=== PATIENT | female | born 1940 | race Caucasian/White ===

== ENCOUNTER 2018-01-02 11:29 | Inpatient (IN) | payer MEDICARE ==
[~2018-01-02] VITALS: Ht 172.7 cm; Wt 90.1 kg
[~2018-01-02 11:29] MED LIST: ASPI325; ASPI81EC PO; ATENOL/CHLOR; CEPH500 PO; ESTR2 PO; IRBE150; MAGOXI400 PO; METF500 PO; MULVIT PO; OLME20 PO; PRESERVISION PO; RXCEPH500 PO; RXSULTRIDS PO; SULTRIDS PO; TRICOR PO; VITAMEN
[2018-01-02 11:53] LABS: BASOPHILS ABSOLUTE AUTO 0.09 K/mm3 (0.00-0.23); BASOPHILS PERCENT AUTO 1 % (0-2); EOSINOPHILS ABSOLUTE AUTO 0.11 K/mm3 (0.00-0.68); EOSINOPHILS PERCENT AUTO 2 % (0-6); Hematocrit 44.9 % (33.0-51.0); Hemoglobin 13.9 g/dL (11.5-16.0); IMMATURE GRAN ABSOLUTE AUTO 0.03 K/mm3 (0.00-0.10); IMMATURE GRAN PERCENT AUTO 0 % (0-1); LYMPHOCYTES ABSOLUTE AUTO 2.21 K/mm3 (0.84-5.20); LYMPHOCYTES PERCENT AUTO 30 % (21-46); MONOCYTES ABSOLUTE AUTO 0.63 K/mm3 (0.16-1.47); MONOCYTES PERCENT AUTO 9 % (4-13); Mean Corpuscular HGB 26.4 pg (26.0-34.0); Mean Corpuscular Volume 85 fL (80-100); NEUTROPHILS ABSOLUTE AUTO 4.34 K/mm3 (1.96-9.15); NEUTROPHILS PERCENT AUTO 59 % (41-73); Platelet Count 327 K/mm3 (150-400); RDW Coefficient Variation 15.9 % (11.7-14.2); RDW Standard Deviation 49.1 fL (35.1-46.3); Red Blood Cell Count 5.27 M/mm3 (3.80-5.20); White Blood Cell Count 7.41 K/mm3 (4.00-11.30)
[2018-01-02 12:22] LABS: Alanine Aminotransfer (ALT/SGP 23 U/L (12-78); Albumin, Blood 3.5 g/dL (3.4-5.0); Albumin/Globulin Ratio 0.7 (0.8-1.8); Alk Phos 39 U/L (50-136); Anion Gap 10 mmol/L (6-16); Aspartate Aminotrans (AST/SGOT 32 U/L (12-37); Bilirubin, Total 0.6 mg/dL (0.1-1.0); Blood Urea Nitrogen 25 mg/dL (8-24); CO2, Blood 24 mmol/L (21-32); Calcium, Blood 9.4 mg/dL (8.5-10.1); Chloride, Blood 104 mmol/L (98-108); Creatinine, Blood 0.89 mg/dL (0.40-1.00); Globulin, Blood 4.7 g/dL (2.2-4.0); Glomerular Filtration Rate >60 (60-); Glucose, Blood 226 mg/dL (70-99); Potassium, Blood 4.2 mmol/L (3.5-5.5); Sodium, Blood 138 mmol/L (136-145); Total Protein, Blood 8.2 g/dL (6.4-8.2)
[2018-01-02 12:53] LABS: Source, Urine Clean Catch
[2018-01-02 13:06] LABS: Bilirubin, Urine Neg (Neg); Blood, Urine Neg (Neg); Glucose Qualitative, Urine Neg (Neg); Ketones, Urine Neg (Neg); Leukocyte Esterase, Urine 1+ (Neg); Nitrite, Urine Neg (Neg); Protein, Urine 2+ (Neg); Specific Gravity, Urine 1.025 (1.003-1.022); Urobilinogen, Urine NORM (Normal)
[2018-01-02 13:24] LABS: Appearance, Urine Clear (Clear); Color, Urine Yellow (P-Yellow)
[2018-01-02 13:25] LABS: Bacteria Not Seen /hpf; Red Blood Cells, Urine Not Seen /hpf (0-2); Squamous Epithelial Cells Not Seen /hpf (Few)
[2018-01-02 13:59] LABS: CHOL/HDL RATIO 3.1; Cholesterol 138 mg/dL (50-200); HDL Cholesterol 44 mg/dL (>39); LDL/HDL RATIO 1.6; Low Density Lipoprotein Chol 71 mg/dL (0-110); Triglycerides 116 mg/dL (30-160); Very Low Density Lipoprot Chol 23 mg/dL (6-32)
[2018-01-02] MEDS ORDERED: METO100ER PO (14:26)
[2018-01-02] MEDS ORDERED: PIOG30 (14:26)
[2018-01-02] MEDS ORDERED: GLIM4 PO (14:26)
[2018-01-02] MEDS ORDERED: FENO54 PO (18:12)
[2018-01-02] MEDS ORDERED: METF500C PO (18:12)
[2018-01-02] MEDS ORDERED: FISH OIL 1,0001 EAC1 PO (18:13)
[2018-01-08] MEDS ORDERED: LISI20 PO (17:27)
== END 2018-01-09 08:03 | DRG 65 ==
LOC: ER 11:29 → MEDS 11:30
PROVIDERS: Physician Assistant
DX: I63.8 Other cerebral infarction (principal); G81.91 Hemiplegia, unspecified affecting right dominant side; E11.65 Type 2 diabetes mellitus with hyperglycemia; I10 Essential (primary) hypertension; E78.5 Hyperlipidemia, unspecified; Z87.891 Personal history of nicotine dependence; Z79.84 Long term (current) use of oral hypoglycemic drugs; Z79.82 Long term (current) use of aspirin; Z79.899 Other long term (current) drug therapy; R40.2412 Glasgow coma scale score 13-15, at arrival to emergency department; R40.2362 Coma scale, best motor response, obeys commands, at arrival to emergency department; R40.2142 Coma scale, eyes open, spontaneous, at arrival to emergency department; R40.2252 Coma scale, best verbal response, oriented, at arrival to emergency department
CPT/HCPCS: 36415; 70450; 70551; 80053; 80061; 81001; 82947; 83036; 85025; 87077; 87086; 87186; 93005; 93010; 93306; 93880; 96374; 97110; 97116; 97162; 97166; 97530; 97535; 99285; G0378; G8978; G8979; G8987; G8988; J0360; J1650; J1815

== ENCOUNTER 2023-04-23 19:01 | Emergency (ER) | payer MEDICARE ==
[~2023-04-23] VITALS: Ht 172.7 cm; Wt 77.1 kg
[~2023-04-23 19:01] MED LIST changes: +FENO54 PO; +FISH OIL 1,0001 EAC1 PO; +GLIM4 PO; +LISI20 PO; +METF500C PO; +METO100ER PO; +PIOG30
[2023-04-23 19:45] LABS: BASOPHILS ABSOLUTE AUTO 0.08 K/mm3 (0.00-0.23); BASOPHILS PERCENT AUTO 1 % (0-2); EOSINOPHILS ABSOLUTE AUTO 0.03 K/mm3 (0.00-0.68); EOSINOPHILS PERCENT AUTO 0 % (0-6); Hematocrit 44.9 % (33.0-51.0); Hemoglobin 14.1 g/dL (11.5-16.0); IMMATURE GRAN ABSOLUTE AUTO 0.03 K/mm3 (0.00-0.10); IMMATURE GRAN PERCENT AUTO 0 % (0-1); LYMPHOCYTES ABSOLUTE AUTO 0.91 K/mm3 (0.84-5.20); LYMPHOCYTES PERCENT AUTO 10 % (21-46); MONOCYTES ABSOLUTE AUTO 1.15 K/mm3 (0.16-1.47); MONOCYTES PERCENT AUTO 13 % (4-13); Mean Corpuscular HGB 26.7 pg (26.0-34.0); Mean Corpuscular HGB Conc 31.4 g/dL (31.5-36.5); Mean Corpuscular Volume 85 fL (80-100); Mean Platelet Volume 9.9 fL (9.1-12.4); NEUTROPHILS ABSOLUTE AUTO 6.79 K/mm3 (1.96-9.15); NEUTROPHILS PERCENT AUTO 76 % (41-73); Platelet Count 258 K/mm3 (150-400); RDW Coefficient Variation 15.3 % (11.7-14.2); RDW Standard Deviation 47.3 fL (35.1-46.3); Red Blood Cell Count 5.28 M/mm3 (3.80-5.20); White Blood Cell Count 8.99 K/mm3 (4.00-11.30)
[2023-04-23 20:03] LABS: Albumin, Blood 3.6 g/dL (3.4-5.0); Albumin/Globulin Ratio 0.7 (0.8-1.8); Bilirubin, Total 0.9 mg/dL (0.1-1.0); Bun/Creatinine Ratio 23.8 (12.0-20.0); Calcium, Blood 9.4 mg/dL (8.5-10.1); Creatinine, Blood 0.8 mg/dL (0.40-1.00); Total Protein, Blood 8.6 g/dL (6.4-8.2)
[2023-04-23 20:05] LABS: Influenza A, PCR NEGATIVE (NEGATIVE); Influenza B, PCR NEGATIVE (NEGATIVE); Resp Syncytial Virus, PCR NEGATIVE (NEGATIVE); SARS-Cov-2 (COVID-19) PCR, MMC POSITIVE (NEGATIVE)
[2023-04-23] MEDS ORDERED: PLAVIX75 MG PO (20:56)
[2023-04-23 22:30] VITALS: BP 155/63
== END 2023-04-23 22:40 | disposition home or self-care (01) ==
LOC: ER 19:01
PROVIDERS: Student in an Organized Health Care Education/Training Program
DX: U07.1 COVID-19 (principal); I10 Essential (primary) hypertension; E11.9 Type 2 diabetes mellitus without complications; Z88.6 Allergy status to analgesic agent; Z88.5 Allergy status to narcotic agent; Z79.82 Long term (current) use of aspirin; Z79.02 Long term (current) use of antithrombotics/antiplatelets; Z79.84 Long term (current) use of oral hypoglycemic drugs; Z79.899 Other long term (current) drug therapy
CPT/HCPCS: 0241U; 80053; 85025; 99284

== ENCOUNTER 2023-05-16 09:57 | Emergency (ER) | payer OTHER, MEDICARE ==
[~2023-05-16] VITALS: Ht 172.7 cm; Wt 77.1 kg
[~2023-05-16 09:57] MED LIST changes: +PLAVIX75 MG PO
[2023-05-16 10:18] VITALS: BP 158/58
== END 2023-05-16 10:43 | disposition home or self-care (01) ==
LOC: ER 09:57
DX: S50.812A Abrasion of left forearm, initial encounter (principal); W01.0XXA Fall on same level from slipping, tripping and stumbling without subsequent striking against object, initial encounter; I10 Essential (primary) hypertension; E11.9 Type 2 diabetes mellitus without complications; Z88.5 Allergy status to narcotic agent; Z88.8 Allergy status to other drugs, medicaments and biological substances; Z79.899 Other long term (current) drug therapy; Z79.82 Long term (current) use of aspirin; Z79.84 Long term (current) use of oral hypoglycemic drugs; Z23 Encounter for immunization
CPT/HCPCS: 90471; 90715; 99282-25

== ENCOUNTER 2023-09-23 13:50 | Emergency (ER) | payer OTHER, MEDICARE ==
[~2023-09-23] VITALS: Ht 172.7 cm; Wt 83.9 kg
[2023-09-23 14:33] LABS: BASOPHILS ABSOLUTE AUTO 0.11 K/mm3 (0.00-0.23); BASOPHILS PERCENT AUTO 1 % (0-2); EOSINOPHILS ABSOLUTE AUTO 0.09 K/mm3 (0.00-0.68); EOSINOPHILS PERCENT AUTO 1 % (0-6); Hematocrit 48.4 % (33.0-51.0); Hemoglobin 15.4 g/dL (11.5-16.0); IMMATURE GRAN ABSOLUTE AUTO 0.05 K/mm3 (0.00-0.10); IMMATURE GRAN PERCENT AUTO 0 % (0-1); LYMPHOCYTES ABSOLUTE AUTO 1.81 K/mm3 (0.84-5.20); LYMPHOCYTES PERCENT AUTO 15 % (21-46); MONOCYTES ABSOLUTE AUTO 1.13 K/mm3 (0.16-1.47); MONOCYTES PERCENT AUTO 9 % (4-13); Mean Corpuscular HGB 26.9 pg (26.0-34.0); Mean Corpuscular HGB Conc 31.8 g/dL (31.5-36.5); Mean Corpuscular Volume 85 fL (80-100); Mean Platelet Volume 9.9 fL (9.1-12.4); NEUTROPHILS PERCENT AUTO 74 % (41-73); Platelet Count 316 K/mm3 (150-400); RDW Coefficient Variation 15.5 % (11.7-14.2); RDW Standard Deviation 47.6 fL (35.1-46.3); Red Blood Cell Count 5.73 M/mm3 (3.80-5.20); White Blood Cell Count 12.09 K/mm3 (4.00-11.30)
[2023-09-23 14:57] LABS: Alanine Aminotransfer (ALT/SGP 25 U/L (12-78); Albumin, Blood 3.5 g/dL (3.4-5.0); Albumin/Globulin Ratio 0.7 (0.8-1.8); Alk Phos 86 U/L (50-136); Anion Gap 3 mmol/L (6-16); Aspartate Aminotrans (AST/SGOT 25 U/L (12-37); Bilirubin, Total 0.9 mg/dL (0.1-1.0); Blood Urea Nitrogen 26 mg/dL (8-24); Bun/Creatinine Ratio 28.5 (12.0-20.0); CO2, Blood 28 mmol/L (21-32); Calcium, Blood 9.7 mg/dL (8.5-10.1); Chloride, Blood 106 mmol/L (98-108); Creatinine, Blood 0.91 mg/dL (0.40-1.00); Ethanol (Alcohol), Blood, Med <3 mg/dL; Globulin, Blood 4.8 g/dL (2.2-4.0); Glomerular Filtration Rate 63 (60-); Glucose, Blood 224 mg/dL (70-99); Sodium, Blood 137 mmol/L (136-145); Total Protein, Blood 8.3 g/dL (6.4-8.2)
[2023-09-23] MEDS ORDERED: Tetanus and Diphtheria Toxoid 0.5 ML INJ IM ONE (17:35)
[2023-09-23 18:00] VITALS: BP 152/71
[2023-09-23] MEDS ORDERED: GLIMEPIRIDE4 MG PO (23:39)
[2023-09-23] MEDS ORDERED: HYDR10 (23:39)
[2023-09-23] MEDS ORDERED: AMLODIPINE BESY10 MG PO (23:39)
[2023-09-23] MEDS ORDERED: LIPITOR80 MG PO (23:39)
[2023-09-23] MEDS ORDERED: PIOGLITAZONE HC15 MG PO (23:40)
[2023-09-23] MEDS ORDERED: LOSA50 (23:40)
== END 2023-09-23 19:00 | disposition home or self-care (01) ==
LOC: ER 13:50
PROVIDERS: Emergency Medicine
DX: M25.551 Pain in right hip (principal); M25.512 Pain in left shoulder; I10 Essential (primary) hypertension; E11.9 Type 2 diabetes mellitus without complications; M79.604 Pain in right leg; E86.0 Dehydration; F03.90 Unspecified dementia, unspecified severity, without behavioral disturbance, psychotic disturbance, mood disturbance, and anxiety; Z79.82 Long term (current) use of aspirin; Z79.84 Long term (current) use of oral hypoglycemic drugs; Z79.01 Long term (current) use of anticoagulants; Z79.899 Other long term (current) drug therapy; Z88.5 Allergy status to narcotic agent; Z88.8 Allergy status to other drugs, medicaments and biological substances; W01.0XXA Fall on same level from slipping, tripping and stumbling without subsequent striking against object, initial encounter; Y93.89 Activity, other specified
CPT/HCPCS: 70450; 71046; 73030; 73502; 73562-RT; 73620; 80053; 81003; 85025; 90471; 90714; 93005; 93010; 96360; 96361; 99285-25; J7030

== ENCOUNTER → 2024-04-24 | Outpatient (CLI) | payer MEDICARE ==
[~2024-04-24] MED LIST changes: +ALMACONE SUSPE355 ML PO; +AMLODIPINE BESY10 MG PO; +Aspir 8181 MG PO; +BENEFIBER236 G1 PO; +CEFU500T30 PO; +FAMO20 PO; +FISH OIL 1,0001 EA10 PO; -FISH OIL 1,0001 EAC1 PO; +GLIMEPIRIDE4 MG PO; +HYDR10 PO; +JARDIANCE25 MG PO; +LIPITOR80 MG PO; +LOSARTAN POTAS100 MG PO; +MICONAZOLE NITR85 GM TOP; +MIRALAX17 GM PO; +MULTI-VITAMIN1 EAC2 PO; -MULVIT PO; +PIOGLITAZONE HC15 MG PO; +PRESERVISION A1 EAC5 PO; +VISBIOME 112.51 EACH PO
== END ==
LOC: LAB SHORT 15:20 → LAB 15:20
DX: N39.0 Urinary tract infection, site not specified (principal)
CPT/HCPCS: 87086

== ENCOUNTER 2025-02-21 06:00 | Day surgery (SDC) | payer MEDICARE | END 2025-02-21 23:00 | disposition home or self-care (01) | LOC: WOUND 06:00 | DX: L89.153 Pressure ulcer of sacral region, stage 3 (principal); E11.9 Type 2 diabetes mellitus without complications; I10 Essential (primary) hypertension; Z86.73 Personal history of transient ischemic attack (TIA), and cerebral infarction without residual deficits | CPT/HCPCS: A6213; G0463 ==

== ENCOUNTER 2025-03-28 00:36 | Day surgery (SDC) | payer MEDICARE | END 2025-03-28 23:00 | disposition home or self-care (01) | LOC: WOUND 00:36 | DX: L89.153 Pressure ulcer of sacral region, stage 3 (principal); E11.9 Type 2 diabetes mellitus without complications; I10 Essential (primary) hypertension; Z86.73 Personal history of transient ischemic attack (TIA), and cerebral infarction without residual deficits | CPT/HCPCS: A6213; G0463 ==

== ENCOUNTER 2025-04-11 02:19 | Day surgery (SDC) | payer MEDICARE ==
[2025-04-11] MEDS ORDERED: Lidocaine HCl 4% Cream 5 GM ONE (11:13)
== END 2025-04-11 23:00 | disposition home or self-care (01) ==
LOC: WOUND 02:19
DX: L89.153 Pressure ulcer of sacral region, stage 3 (principal); E11.9 Type 2 diabetes mellitus without complications; I10 Essential (primary) hypertension
CPT/HCPCS: A6213; A9270; G0463

== ENCOUNTER 2025-05-02 00:34 | Day surgery (SDC) | payer MEDICARE | END 2025-05-02 23:00 | disposition home or self-care (01) | LOC: WOUND 00:34 | DX: L89.153 Pressure ulcer of sacral region, stage 3 (principal); E11.9 Type 2 diabetes mellitus without complications; I10 Essential (primary) hypertension; Z86.73 Personal history of transient ischemic attack (TIA), and cerebral infarction without residual deficits | CPT/HCPCS: A6213; G0463 ==

== ENCOUNTER 2025-05-30 00:17 | Day surgery (SDC) | payer MEDICARE | END 2025-05-30 23:00 | disposition home or self-care (01) | LOC: WOUND 00:17 | DX: L89.153 Pressure ulcer of sacral region, stage 3 (principal); E11.9 Type 2 diabetes mellitus without complications; I10 Essential (primary) hypertension | CPT/HCPCS: A6213; G0463 ==

== ENCOUNTER 2025-06-06 00:55 | Day surgery (SDC) | payer MEDICARE | END 2025-06-06 23:00 | disposition home or self-care (01) | LOC: WOUND 00:55 | DX: L89.153 Pressure ulcer of sacral region, stage 3 (principal); E11.9 Type 2 diabetes mellitus without complications; I10 Essential (primary) hypertension; Z86.73 Personal history of transient ischemic attack (TIA), and cerebral infarction without residual deficits | CPT/HCPCS: A6213; G0463 ==

== ENCOUNTER 2025-06-13 10:13 | Day surgery (SDC) | payer MEDICARE | END 2025-06-13 23:00 | disposition home or self-care (01) | LOC: WOUND 10:13 | DX: L89.153 Pressure ulcer of sacral region, stage 3 (principal); E11.9 Type 2 diabetes mellitus without complications; I10 Essential (primary) hypertension | CPT/HCPCS: A6213; G0463 ==

== ENCOUNTER 2025-06-20 02:40 | Day surgery (SDC) | payer MEDICARE | END 2025-06-20 23:00 | disposition home or self-care (01) | LOC: WOUND 02:40 | DX: L89.153 Pressure ulcer of sacral region, stage 3 (principal); E11.9 Type 2 diabetes mellitus without complications; I10 Essential (primary) hypertension; Z86.73 Personal history of transient ischemic attack (TIA), and cerebral infarction without residual deficits | CPT/HCPCS: A6213; G0463 ==

== ENCOUNTER 2025-06-28 03:06 | Day surgery (SDC) | payer MEDICARE ==
[~2025-06-28 03:06] MED LIST changes: +Lidocaine HCl 4% Cream 5 GM ONE
== END 2025-06-28 23:00 | disposition home or self-care (01) ==
LOC: WOUND 03:06
DX: L89.153 Pressure ulcer of sacral region, stage 3 (principal); E11.9 Type 2 diabetes mellitus without complications; I10 Essential (primary) hypertension; Z86.73 Personal history of transient ischemic attack (TIA), and cerebral infarction without residual deficits
CPT/HCPCS: A6196; A6213; A9270

== ENCOUNTER 2025-07-11 03:03 | Day surgery (SDC) | payer MEDICARE ==
[~2025-07-11 03:03] MED LIST changes: -Lidocaine HCl 4% Cream 5 GM ONE
== END 2025-07-11 23:00 | disposition home or self-care (01) ==
LOC: WOUND 03:03
DX: L89.153 Pressure ulcer of sacral region, stage 3 (principal); I10 Essential (primary) hypertension; E11.9 Type 2 diabetes mellitus without complications
CPT/HCPCS: A6196; A6213; G0463

== ENCOUNTER 2025-07-18 06:42 | Day surgery (SDC) | payer MEDICARE | END 2025-07-18 23:00 | disposition home or self-care (01) | LOC: WOUND 06:42 | DX: L89.153 Pressure ulcer of sacral region, stage 3 (principal); E11.9 Type 2 diabetes mellitus without complications; I10 Essential (primary) hypertension; Z86.73 Personal history of transient ischemic attack (TIA), and cerebral infarction without residual deficits | CPT/HCPCS: A6196; A6213; G0463 ==